=== PATIENT | male | born 1940 | race Caucasian/White ===

== ENCOUNTER 2019-04-05 13:13 | Emergency (ER) | payer MEDICARE ==
[2019-04-05] MEDS ORDERED: Meclizine 25 MG Tab PO ONE (14:20)
--- NOTE | 2019-04-05 14:38 | EDM.PDOC ---
ED HPI GENERAL MEDICAL PROBLEM - General Chief Complaint: General Stated Complaint: DIZZY, EAR PROBLEMS Time Seen by Provider: 04/05/19 13:55 Source of Information: Reports: Patient History Limitations: Reports: No Limitations - History of Present Illness INITIAL COMMENTS - FREE TEXT/NARRATIVE: pt arrived with feeling off balance. He would not describe this as true vertigo. he feels like he has a litle pain in his ears. He is not nauseated. Onset: Other ( started yesterday. [place] Duration: Hour(s): Location: Reports: Head, Face, Generalized, Other ( Pt is feeling off balance. ) Associated Symptoms: Reports: Other ( feels off balance. ) - Related Data Allergies Allergy/AdvReac Type Severity Reaction Status Date / Time cefdinir Allergy Vomiting Verified 04/05/19 13:56 diltiazem Allergy Hives Verified 04/05/19 13:56 isosorbide Allergy Headache Verified 04/05/19 13:56 niacin Allergy Other Verified 04/05/19 13:56 pioglitazone Allergy Edema Verified 04/05/19 13:56 pneumococcal vaccine Allergy Chills Verified 04/05/19 13:56 simvastatin Allergy Other Verified 04/05/19 13:56 Past Medical History HEENT History: Reports: Cataract, Hard of Hearing Cardiovascular History: Reports: CAD, Heart Failure, High Cholesterol, Hypertension, Other (See Below) Other Cardiovascular History: Left bundle branch block Respiratory History: Reports: SOB Gastrointestinal History: Reports: Chronic Constipation Genitourinary History: Reports: Chronic Renal Insuffiency, Other (See Below) Other Genitourinary History: stage 4 kidney failure. Musculoskeletal History: Reports: Back Pain, Chronic Other Musculoskeletal History: has carpal tunnel, dupuytren Endocrine/Metabolic History: Reports: Diabetes, Type II Other Endocrine/Metabolic History: insulin dependent for 35 years. Oncologic (Cancer) History: Reports: Other (See Below) Other Oncologic History: skin cancer Dermatologic History: Reports: Other (See Below) Other Dermatologic History: skin cancer - Past Surgical History HEENT Surgical History: Reports: Cataract Surgery GI Surgical History: Reports: Cholecystectomy Musculoskeletal Surgical History: Reports: Arthroscopic Knee, Shoulder Surgery Social & Family History - Tobacco Use Smoking Status *Q: Never Smoker - Recreational Drug Use Recreational Drug Use: No ED ROS GENERAL - Review of Systems Review Of Systems: See Below Constitutional: Reports: No Symptoms HEENT: Reports: No Symptoms Respiratory: Reports: No Symptoms Cardiovascular: Reports: No Symptoms Endocrine: Reports: No Symptoms GI/Abdominal: Reports: No Symptoms : Reports: No Symptoms Musculoskeletal: Reports: No Symptoms Skin: Reports: No Symptoms Neurological: Reports: Dizziness, Other (pt feels off balance. ) Psychiatric: Reports: No Symptoms ED EXAM, GENERAL - Physical Exam Exam: See Below Free Text/Narrative:: pt has a sensation of being off balance when he turns his head or moves. He has not felt as if he was going to pass out. Exam Limited By: No Limitations General Appearance: Alert, Mild Distress, Other (pupils equal and reactive. ) Ears: Other ( small amount of fluid behind the drums. ) Nose: Normal Inspection Throat/Mouth: Normal Inspection Neck: Normal Inspection Respiratory/Chest: No Respiratory Distress Cardiovascular: Regular Rate, Rhythm GI/Abdominal: Soft, Non-Tender (Male) Exam: Deferred Rectal (Males) Exam: Deferred Back Exam: CVA Tenderness (L) Extremities: Normal Inspection Neurological: Alert, Oriented, Normal Cognition Course - Vital Signs Last Recorded V/S: Last Vital Signs Temp 35.9 C 04/05/19 14:06 Pulse 58 L 04/05/19 14:06 Resp 16 04/05/19 14:06 BP 156/68 H 04/05/19 14:06 Pulse Ox 97 04/05/19 14:06 Orthostatic Blood Pressure [ 138/71 Standing] Orthostatic Blood Pressure [ 139/81 Sitting] Orthostatic Blood Pressure [ 147/71 Supine] - Orders/Labs/Meds Orders: Active Orders 24 hr Category Date Time Status Orthostatic Vital Signs [RC] ASDIRECTED Care 04/05/19 13:49 Active UA W/MICROSCOPIC [URIN] Urgent Lab 04/05/19 13:48 Ordered Labs: Laboratory Tests 04/05/19 04/05/19 Range/Units 13:55 13:55 WBC 6.0 (4.5-11.0) K/uL RBC 3.89 L (4.30-5.90) M/uL Hgb 12.8 (12.0-15.0) g/dL Hct 39.1 L (40.0-54.0) % MCV 101 H (80-98) fL MCH 33 H (27-31) pg MCHC 33 (32-36) % Plt Count 135 L (150-400) K/uL Neut % (Auto) 63 (36-66) % Lymph % (Auto) 20 L (24-44) % Converse % (Auto) 14 H (2-6) % Eos % (Auto) 3 (2-4) % Baso % (Auto) 1 (0-1) % Sodium 145 (140-148) mmol/L Potassium 4.2 (3.6-5.2) mmol/L Chloride 108 (100-108) mmol/L Carbon Dioxide 30 (21-32) mmol/L Anion Gap 6.6 (5.0-14.0) mmol/L BUN 49 H (7-18) mg/dL Creatinine 2.9 H (0.8-1.3) mg/dL Est Cr Clr Drug Dosing 22.38 mL/min Estimated GFR (MDRD) 21 L (>60) Glucose 176 H (74-106) mg/dL Calcium 8.9 (8.5-10.1) mg/dL Total Bilirubin 0.5 (0.2-1.0) mg/dL AST 18 (15-37) U/L ALT 39 (12-78) U/L Alkaline Phosphatase 127 H (46-116) U/L Total Protein 6.6 (6.4-8.2) g/dL Albumin 3.4 (3.4-5.0) g/dL Globulin 3.2 (2.3-3.5) g/dL Albumin/Globulin Ratio 1.1 L (1.2-2.2) Meds: Medications Discontinued Medications Generic Name Dose Route Start Last Admin Trade Name Rosey PRN Reason Stop Dose Admin Meclizine HCl 25 mg 04/05/19 14:20 Antivert PO 04/05/19 14:21 ONETIME ONE - Re-Assessments/Exams Free Text/Narrative Re-Assessment/Exam: 04/05/19 14:39 Pt has a history of stage 4 kidney disease. His creatnine is stable. His other labs are good. He was given antivert 25 po. He was found to have some fluid behind his tms. Departure - Departure Time of Disposition: 14:40 Disposition: Home, Self-Care 01 Condition: Fair Clinical Impression: Serous otitis media, Dizziness - Discharge Information Referrals: PCP,None [Primary Care Provider] - Care Plan Goals: low activity, antivert 25 mg tid regularly for the next 2 days and then prn, amoxicillin 500mg tid for 1 week. rtc if symptoms should get worse. - My Orders Last 24 Hours: My Active Orders 04/05/19 13:48 UA W/MICROSCOPIC [URIN] Urgent 04/05/19 13:49 Orthostatic Vital Signs [RC] ASDIRECTED - Assessment/Plan Last 24 Hours: My Active Orders 04/05/19 13:48 UA W/MICROSCOPIC [URIN] Urgent 04/05/19 13:49 Orthostatic Vital Signs [RC] ASDIRECTED
== END 2019-04-05 15:10 | disposition home or self-care (01) ==
LOC: JP.ED 13:13
DX: H65.93 Unspecified nonsuppurative otitis media, bilateral (principal); I13.0 Hypertensive heart and chronic kidney disease with heart failure and stage 1 through stage 4 chronic kidney disease, or unspecified chronic kidney disease; I50.9 Heart failure, unspecified; N18.4 Chronic kidney disease, stage 4 (severe); E11.22 Type 2 diabetes mellitus with diabetic chronic kidney disease; Z88.8 Allergy status to other drugs, medicaments and biological substances; Z88.7 Allergy status to serum and vaccine
CPT/HCPCS: 36415; 80053; 81001; 85025; 93041; 99284; A9270; 99283